=== PATIENT | male | born 1965 | race Caucasian/White ===

== ENCOUNTER 2016-11-15 12:28 | Emergency (ER) | payer SELFPAY ==
[~2016-11-15] VITALS: Ht 175.3 cm; Wt 68.2 kg
[2016-11-15 12:36] VITALS: BP 154/85
--- NOTE | 2016-11-15 14:06 | REP ---
Clinical: Pain and decreased range of motion. Technique: AP, lateral, bilateral oblique views right foot . Findings: The osseous structures and joint spaces are intact and normal. There is no evidence for acute fracture or dislocation. Surrounding soft tissues are unremarkable. No subcutaneous emphysema or radiodense foreign body. Impression: Age appropriate right foot radiographs. No acute fracture or dislocation. Signed by Obdulio Bertrand MD 11/15/2016 01:57 P
[2016-11-15 14:29] LABS: BASO # 0.1 K/mm3 (0.0-0.2); BASO % 1.1 % (0.0-1.0); EOS # 0.1 K/mm3 (0.0-0.50); EOS % 2.1 % (0.0-3.0); LARGE UNSTAINED CELL # 0.1 K/mm3 (0.0-0.4); LARGE UNSTAINED CELL % 1.8 % (0.0-4.0); LYMPH % 31.7 % (24.0-44.0); MEAN CORPUSCULAR HGB CONC 34.7 g/dl (32.0-36.5); MEAN CORPUSCULAR VOLUME 95.1 fl (80.0-96.0); MONO # 0.4 K/mm3 (0.0-0.8); NEUTROPHILS # 3.5 K/mm3 (1.8-7.7); NEUTROPHILS % 56.3 % (36.0-66.0); PLATELET COUNT, AUTOMATED 192 k/mm3 (150-450); RED CELL DISTRIBUTION WIDTH 12.3 % (11.5-14.5); WHITE BLOOD COUNT 6.1 K/mm3 (4.0-10.0)
[2016-11-15 14:54] LABS: ALBUMIN 3.4 GM/DL (3.2-5.2); ALBUMIN/GLOBULIN RATIO 1.21 (1.00-1.93); ALKALINE PHOSPHATASE 90 U/L (45-117); ALT/SGPT 19 U/L (12-78); ANION GAP 9 MEQ/L (8-16); AST/SGOT 11 U/L (15-37); BILIRUBIN,TOTAL 0.3 MG/DL (0.2-1.0); BLOOD UREA NITROGEN 21 MG/DL (7-18); CALCIUM LEVEL 8.3 MG/DL (8.5-10.1); CARBON DIOXIDE LEVEL 24 MEQ/L (21-32); CHLORIDE LEVEL 97 MEQ/L (98-107); CREATININE FOR GFR 0.85 MG/DL (0.70-1.30); GLOMERULAR FILTRATION RATE > 60.0 (>56); POTASSIUM SERUM 4.8 MEQ/L (3.5-5.1); SODIUM LEVEL 130 MEQ/L (136-145); TOTAL PROTEIN 6.2 GM/DL (6.4-8.2)
[2016-11-15 14:58] LABS: GLUCOSE, FASTING 634 MG/DL (70-105)
[2016-11-15] MEDS ORDERED: HumuLIN R (REGULAR) INSULIN (NovoLIN R) **100U/ML** PER UNIT IV ONE (15:15)
[2016-11-15] MEDS ORDERED: NS 1,000 ML IV ONE ×2 (15:15)
--- NOTE | 2016-11-15 16:27 | ED PDOC ---
Post-Departure Follow-Up Dr. 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 Pt states he will sig out AMA and return to ED for MRI due to work schedule problems. [place] of the situation was repeated by BRET jules and pt still wishes to leave. Discussed blood glucose and follow thereof at local clinic. Gemma Jules Nov 15, 2016 16:27
[2016-11-15] MEDS ORDERED: METF750T PO (16:31)
--- NOTE | 2016-11-23 12:34 | ED PDOC ---
Post-Departure Follow-Up late entry. this pt was seen and examined by me. pt non compliant w metformin. treated in ed w nss, insulin. pt needs emergent mri and is refusing. he is aware of risks of refusal. we will restart metformin and ask pt to fu w pcp. pt aware of risks and stil choses ama. Daysi Galicia MD Nov 23, 2016 12:34
== END 2016-11-15 17:40 | disposition home or self-care (01) ==
LOC: M ED 12:28
DX: E11.9 Type 2 diabetes mellitus without complications (principal); M21.371 Foot drop, right foot; M54.12 Radiculopathy, cervical region; R07.0 Pain in throat; J34.9 Unspecified disorder of nose and nasal sinuses; J39.2 Other diseases of pharynx; Z79.84 Long term (current) use of oral hypoglycemic drugs

== ENCOUNTER → 2017-03-18 | Outpatient (CLI) | payer MEDICAID | LOC: M ADAMS 15:29 | DX: M51.36 Other intervertebral disc degeneration, lumbar region (principal); M51.37 Other intervertebral disc degeneration, lumbosacral region ==

== ENCOUNTER → 2017-03-18 | Outpatient (REF) | payer MEDICAID ==
[2017-03-18 19:10] LABS: BASO # 0.1 10^3/uL (0.0-0.2); BASO % 0.7 % (0.0-1.0); EOS # 0.1 10^3/uL (0.0-0.50); EOS % 1.4 % (0.0-3.0); HEMATOCRIT 44.8 % (42.0-52.0); HEMOGLOBIN 15.4 g/dl (14.0-18.0); IMMATURE GRANULOCYTE # 0.1 10^3/uL (0-0); IMMATURE GRANULOCYTE % 0.7 % (0-0); LYMPH # 2.2 10^3/uL (1.5-4.5); LYMPH % 30.7 % (24.0-44.0); MEAN CORPUSCULAR HEMOGLOBIN 31.8 pg (27.0-33.0); MEAN CORPUSCULAR HGB CONC 34.4 g/dl (32.0-36.5); MEAN CORPUSCULAR VOLUME 92.6 fl (80.0-96.0); MONO # 0.4 10^3/uL (0.0-0.8); MONO % 5.8 % (0.0-5.0); NEUTROPHILS # 4.4 10^3/uL (1.8-7.7); NEUTROPHILS % 60.7 % (36.0-66.0); PLATELET COUNT, AUTOMATED 300 10^3/uL (150-450); RED BLOOD COUNT 4.84 10^6/uL (4.30-6.10); RED CELL DISTRIBUTION WIDTH 11.9 % (11.5-14.5); WHITE BLOOD COUNT 7.3 10^3/uL (4.0-10.0)
[2017-03-18 19:57] LABS: ESTIMATED AVERAGE GLUCOSE 395 MG/DL (60-110); HEMOGLOBIN A1c 15.4 %
[2017-03-18 20:10] LABS: ALBUMIN 3.7 GM/DL (3.2-5.2); ALBUMIN/GLOBULIN RATIO 1.06 (1.00-1.93); ALKALINE PHOSPHATASE 93 U/L (45-117); ALT/SGPT 34 U/L (12-78); ANION GAP 7 MEQ/L (8-16); AST/SGOT 17 U/L (7-37); BILIRUBIN,TOTAL 0.4 MG/DL (0.2-1.0); BLOOD UREA NITROGEN 22 MG/DL (7-18); CARBON DIOXIDE LEVEL 31 MEQ/L (21-32); CHLORIDE LEVEL 94 MEQ/L (98-107); CREATININE FOR GFR 0.91 MG/DL (0.70-1.30); FREE T4 1.21 NG/DL (0.76-1.46); GLOMERULAR FILTRATION RATE > 60.0 (>56); POTASSIUM SERUM 5.1 MEQ/L (3.5-5.1); SODIUM LEVEL 132 MEQ/L (136-145); TOTAL PROTEIN 7.2 GM/DL (6.4-8.2)
[2017-03-18 20:15] LABS: GLUCOSE, FASTING 495 MG/DL (70-105)
[2017-03-18 20:47] LABS: TOTAL 25(OH) VITAMIN D 26.2 NG/ML (30.0-100.0)
== END ==
LOC: M SFHCADAM 15:08
DX: E11.8 Type 2 diabetes mellitus with unspecified complications (principal); F17.210 Nicotine dependence, cigarettes, uncomplicated

== ENCOUNTER → 2017-04-16 | Outpatient (CLI) | payer MEDICAID | LOC: M RAD 08:18 | DX: M51.36 Other intervertebral disc degeneration, lumbar region (principal); Q76.0 Spina bifida occulta | CPT/HCPCS: 72148 ==

== ENCOUNTER → 2017-06-28 | Outpatient (CLI) | payer OTHER, MEDICAID | LOC: M ADAMS 14:32 | DX: M16.11 Unilateral primary osteoarthritis, right hip (principal) | CPT/HCPCS: 73502 ==

== ENCOUNTER → 2017-07-26 | Outpatient (CLI) | payer OTHER | LOC: M RAD 07:29 | DX: M79.605 Pain in left leg (principal) | CPT/HCPCS: 72195 ==

== ENCOUNTER → 2017-07-29 | Outpatient (REF) | payer MEDICAID ==
[2017-07-29 13:34] LABS: ESTIMATED AVERAGE GLUCOSE 272 MG/DL (60-110); HEMOGLOBIN A1c 11.1 %
[2017-07-29 13:35] LABS: ALBUMIN 3.7 GM/DL (3.2-5.2); ALBUMIN/GLOBULIN RATIO 1.28 (1.00-1.93); ALKALINE PHOSPHATASE 71 U/L (45-117); ALT/SGPT 14 U/L (12-78); ANION GAP 5 MEQ/L (8-16); AST/SGOT 8 U/L (7-37); BILIRUBIN,TOTAL 0.3 MG/DL (0.2-1.0); BLOOD UREA NITROGEN 15 MG/DL (7-18); CARBON DIOXIDE LEVEL 30 MEQ/L (21-32); CHLORIDE LEVEL 105 MEQ/L (98-107); CHOLESTEROL LEVEL 178 MG/DL (<200); CREATININE FOR GFR 0.79 MG/DL (0.70-1.30); GLOMERULAR FILTRATION RATE > 60.0 (>56); GLUCOSE, FASTING 304 MG/DL (70-100); HDL CHOLESTEROL 37 MG/DL (>40); NON-HDL-C 141 MG/DL; POTASSIUM SERUM 4.4 MEQ/L (3.5-5.1); SODIUM LEVEL 140 MEQ/L (136-145); TOTAL PROTEIN 6.6 GM/DL (6.4-8.2); TRIGLYCERIDES LEVEL 140 MG/DL (<150)
== END ==
LOC: M SFHCADAM 08:57
DX: E11.8 Type 2 diabetes mellitus with unspecified complications (principal)
CPT/HCPCS: 80053

== ENCOUNTER 2017-08-09 20:46 | Emergency (ER) | payer OTHER, MEDICAID ==
[2017-08-10] MEDS: NAPROXEN 250 MG TAB PO (02:45)
== END 2017-08-10 05:12 | disposition home or self-care (01) ==
LOC: M ED 20:46
DX: T76.11XA Adult physical abuse, suspected, initial encounter (principal); Z59.0 Homelessness; E11.9 Type 2 diabetes mellitus without complications; F17.210 Nicotine dependence, cigarettes, uncomplicated; Z79.4 Long term (current) use of insulin
CPT/HCPCS: 99283